=== PATIENT | male | born 2005 | race Two or more races ===

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

== ENCOUNTER 2024-05-13 18:44 | Emergency (ER) | payer OTHER ==
[~2024-05-13] VITALS: Ht 162.6 cm; Wt 76.2 kg
[~2024-05-13 18:44] MED LIST: KETO10TA2 PO
[2024-05-13] MEDS ORDERED: 0.9 % SODIUM CHLORIDE 1,000 ML IV SCH (20:15)
[2024-05-13] MEDS ORDERED: FAMOTIDINE/PF 20 MG/2 ML VIAL IV SCH (20:15)
[2024-05-13] MEDS ORDERED: DEXTROSE 5 % AND 0.9 % NACL 1,000 ML IV SCH (20:15)
[2024-05-13] MEDS ORDERED: ONDANSETRON HCL 2 MG/ML VIAL IV SCH (20:15)
[2024-05-13 20:44] LABS: HEMATOCRIT 45.4 % (39.0-48.0); HEMOGLOBIN 15.4 g/dL (13-16.00); MEAN CELL VOLUME 83.1 fL (80.0-100.00); MEAN CORPUSCULAR HEMOGLOBIN 28.1 pg (27.00-32.0); MEAN CORPUSCULAR HGB CONC 33.8 g/dl (32.0-36.0); PLATELET COUNT 163 K/uL (150-450); RED BLOOD COUNT 5.47 M/uL (4.00-6.00)
[2024-05-13 21:15] LABS: ALBUMIN 4.4 gm/dL (3.4-5.0); BILIRUBIN TOTAL 0.32 mg/dL (0.3-1.2); CALCIUM 9.4 mg/dL (8.5-10.1); CREATININE SERUM 1.37 mg/dL (0.70-1.30); GFR 66.24; POTASSIUM 4.14 mEq/L (3.5-5.1); TOTAL PROTEIN 8.4 gm/dL (6.4-8.2)
== END 2024-05-13 22:56 | disposition home or self-care (01) ==
LOC: ER 18:45 → EMR PED 18:57 → ER 18:57 → EMR PED 22:56
PROVIDERS: Emergency Medicine Pediatric Emergency Medicine
DX: R50.9 Fever, unspecified (principal); E86.0 Dehydration; R11.0 Nausea; J06.9 Acute upper respiratory infection, unspecified; B34.9 Viral infection, unspecified; Z20.822 Contact with and (suspected) exposure to COVID-19